=== PATIENT | female | born 1990 ===

== ENCOUNTER 2016-06-17 23:00 | Observation (INO) | payer BC, OTHER ==
--- NOTE | 2016-06-18 00:12 | ED PDOC ---
Arrival/HPI - General Chief Complaint: Dizziness/Lightheaded Time Seen by Provider: 06/18/16 00:06 Historian: Patient - History of Present Illness Narrative History of Present Illness (Text): 06/18/16 00:12 Liudmila Castellanos is a 26 year old female, whose past medical history includes asthma and anxiety, who presents to the Emergency department complaining of nausea. Patient states she has been experiencing intermittent nausea for the 6 days with 1 episode of vomiting 6 days prior and intermittent abdominal pain. Patient states today she felt light-headed with dizziness, described as room- spinning, headache, subjective fever, and chills. Patient also reports diarrhea for the past few months. Patient states she is currently on her menstrual period and notes she had Pepto Bismol at 18:00. Time/Duration: < week (6 days) Symptom Onset: Gradual Symptom Course: Intermittent Activities at Onset: Rest, Light Context: Home Past Medical History - Provider Review Nursing Documentation Reviewed: Yes - Cardiac Hx Cardiac Disorders: No Hx Hypertension: No - Pulmonary Hx Asthma: Yes - Neurological HX Cerebrovascular Accident: No Hx Seizures: No - Hematological/Oncological Hx Cancer: No - Genitourinary/Gynecological Hx Sexually Transmitted Diseases: No - Psychiatric Hx Anxiety: Yes Hx Panic Disorder: Yes Hx Substance Use: Yes (marijuana) - Anesthesia Hx Anesthesia: No - Suicidal Assessment Feels Threatened In Home Enviroment: No Family/Social History - Physician Review Nursing Documentation Reviewed: Yes Family/Social History: No Known Family HX Smoking Status: Unknown If Ever Smoked Hx Alcohol Use: No Hx Substance Use: Yes (marijuana) Allergies/Home Meds Allergies/Adverse Reactions: Allergies acetaminophen [From Percocet] Allergy (Verified 06/17/16 23:41) ITCHING oxycodone HCl [From Percocet] Allergy (Verified 06/17/16 23:41) ITCHING vancomycin Allergy (Verified 06/17/16 23:41) ITCHING Review of Systems - Physician Review All systems were reviewed & negative as marked: Yes - Review of Systems Constitutional: Fevers (+subjective fever), Other (+chills) Eyes: Normal ENT: Normal Respiratory: Normal. absent: SOB, Cough Cardiovascular: Normal. absent: Chest Pain Gastrointestinal: Abdominal Pain, Diarrhea, Nausea, Vomiting Genitourinary Female: Normal. absent: Dysuria, Frequency, Hematuria, Urine Output Changes Musculoskeletal: Normal. absent: Back Pain, Neck Pain Skin: Normal. absent: Rash Neurological: Headache, Dizziness, Other (+light-headedness) Endocrine: Normal Hemo/Lymphatic: Normal Psychiatric: Normal Physical Exam Vital Signs Reviewed: Yes Vital Signs Temp Pulse Resp BP Pulse Ox 06/18/16 03:32 98.1 F 61 17 114/74 100 06/17/16 23:42 98.3 F 59 L 16 112/75 100 Temperature: Afebrile Blood Pressure: Normal Pulse: Regular Respiratory Rate: Normal Appearance: Positive for: Well-Appearing, Non-Toxic, Comfortable Pain Distress: None Mental Status: Positive for: Alert and Oriented X 3 - Systems Exam Head: Present: Atraumatic, Normocephalic Pupils: Present: PERRL Extroacular Muscles: Present: EOMI Conjunctiva: Present: Normal Ears: Present: Normal, NORMAL TM, Normal Canal, Other (Gauges in bilateral ear lobes) Mouth: Present: Moist Mucous Membranes Neck: Present: Normal Range of Motion Respiratory/Chest: Present: Clear to Auscultation, Good Air Exchange. No: Respiratory Distress, Accessory Muscle Use Cardiovascular: Present: Regular Rate and Rhythm, Normal S1, S2. No: Murmurs Abdomen: Present: Normal Bowel Sounds. No: Tenderness, Distention, Peritoneal Signs Neurological: Present: GCS=15, CN II-XII Intact, Speech Normal Skin: Present: Warm, Dry, Normal Color. No: Rashes Psychiatric: Present: Alert, Oriented x 3, Normal Insight, Normal Concentration Medical Decision Making ED Course and Treatment: 06/18/16 00:12 Impression: 26 year old female complaining of nausea, dizziness, light-headedness, and abdominal pain. Plan: -- CT Abdomen and Pelvis with PO and IV contrast -- Labs, lipase, amylase -- Urinalysis -- IV fluids -- Zofran -- Pepcid -- Reassess and disposition Progress Notes: 06/18/16 03:39 CT Abdomen and Pelvis shows: Dictated and Authenticated by: Daniel Abad MD Lower thorax: Subtle nodular opacities at the lung bases compatible with nonspecific small airways disease with associated septal thickening ABDOMEN: Liver: Unremarkable. No mass. Gallbladder and bile ducts: Nonspecific periportal edema is present. The gallbladder demonstrates asymmetric wall thickening. Cholecystitis not excluded in the correct clinical setting. Pancreas: Unremarkable. No mass. No ductal dilation. Spleen: Unremarkable. No splenomegaly. Adrenals: Unremarkable. No mass. Kidneys and ureters: Unremarkable. No solid mass. No hydronephrosis. Stomach and bowel: Rectosigmoid wall thickening may reflect a nonspecific proctosigmoiditis in the correct clinical setting. Appendix: No findings to suggest acute appendicitis. PELVIS: Bladder: Unremarkable. No mass. Reproductive: Unremarkable as visualized. ABDOMEN and PELVIS: Intraperitoneal space: Trace free fluid is present which is nonspecific but may reflect physiologic fluid or rupture of an ovarian cyst or follicle. Bones/joints: No acute fracture. No dislocation. Soft tissues: Unremarkable. Vasculature: Unremarkable. No abdominal aortic aneurysm. Lymph nodes: Unremarkable. No enlarged lymph nodes. Other findings: Tampon is in place IMPRESSION: 1. Nonspecific periportal edema is present. The gallbladder demonstrates asymmetric wall thickening. Cholecystitis not excluded in the correct clinical setting. 2. Trace free pelvic fluid. 3. Rectosigmoid wall thickening may reflect a nonspecific proctosigmoiditis in the correct clinical setting. 06/18/16 05:30 Patient continues to feel pain and nausea and will need further evaluation and observation. Case discussed with Dr. Perdomo, covering for Dr. Fernandez, who is aware and agrees with plan. 06/18/16 05:33 Orders placed for earl garcía and CORY to be followed by inpatient/observation team. - Lab Interpretations Lab Results: 06/18/16 00:25 06/18/16 00:25 Lab Results 06/18/16 00:25: WBC 9.8 D, RBC 3.92, Hgb 11.3 L, Hct 33.7 L, MCV 86.0, MCH 28.8 , MCHC 33.5, RDW 13.3, Plt Count 272, MPV 10.2, Gran % 63.4, Lymph % (Auto) 26.1 , [place] % (Auto) 7.1 H, Eos % (Auto) 3.2, Baso % (Auto) 0.2, Gran # 6.19, Lymph # 2.5, [place] # 0.7 H, Eos # 0.3, Baso # 0.02, PT 10.5, INR 0.97, APTT 25.6, Sodium 138, Potassium 3.1 L, Chloride 105, Carbon Dioxide 24, Anion Gap 12, BUN 11, Creatinine 0.6, Est GFR ( Amer) > 60, Est GFR (Non-Af Amer) > 60, Random Glucose 92, Calcium 9.0, Total Bilirubin 0.5, AST 25, ALT 29, Alkaline Phosphatase 56, Total Protein 7.6, Albumin 4.2, Globulin 3.4, Albumin/Globulin Ratio 1.2, Amylase 105, Lipase 95, Urine Color Yellow, Urine Appearance Slight- cloudy, Urine pH 6.5, Ur Specific [place] 1.025, Urine Protein Trace H, Urine Glucose (UA) Negative, Urine Ketones Negative, Urine Blood Moderate H, Urine Nitrate Negative, Urine Bilirubin Negative, Urine Urobilinogen 0.2, Ur Leukocyte Esterase Negative, Urine RBC 1 - 3, Urine WBC 0 - 2, Ur Epithelial Cells 0 - 2, Urine Bacteria Rare, Urine Other Mucus I have reviewed the lab results: Yes - RAD Interpretation Radiology Orders: 06/18/16 00:14 ABD PELVIS PO & IV CONTRAST [CT] Stat 06/18/16 05:32 BILIARY SCAN (HIDA) [NM] Urgent ABDOMEN COMPLETE [US] Urgent [employer]: Radiologist - Medication Orders Current Medication Orders: Discontinued Medications Famotidine (Pepcid) 20 mg IVP STAT STA Stop: 06/18/16 00:18 Last Admin: 06/18/16 00:52 Dose: 20 MG IVP Administration Document 06/18/16 00:52 ASHLEY (Rec: 06/18/16 00:53 ASHLEY [id number]) Charges for Administration # of IVP Administrations 1 Sodium Chloride (Sodium Chloride 0.9%) 1,000 mls @ 999 mls/hr IV .Q1H1M STA Stop: 06/18/16 01:14 Last Admin: 06/18/16 00:52 Dose: 999 MLS/HR eMAR Start Stop Document 06/18/16 00:52 ASHLEY (Rec: 06/18/16 00:52 ASHLEY [id number]) Intravenous Solution Start Date 06/18/16 Start Time 00:52 End Date 06/18/16 End time 01:52 Total Infusion Time 60 Iohexol (Omnipaque 240 (50 Ml)) Confirm Administered Dose 50 ml .ROUTE .STK-MED ONE Stop: 06/18/16 01:11 Iohexol (Omnipaque 350 100 Ml) Confirm Administered Dose 350 mg .ROUTE .STK-MED ONE Stop: 06/18/16 02:49 Morphine Sulfate (Morphine) 2 mg IVP STAT STA Stop: 06/18/16 00:34 Last Admin: 06/18/16 00:53 Dose: 2 MG MAR Pain Assessment Document 06/18/16 00:53 ASHLEY (Rec: 06/18/16 00:53 ASHLEY [id number]) Pain Reassessment Is this a pain reassessment? No IVP Administration Document 06/18/16 00:53 ASHLEY (Rec: 06/18/16 00:53 ASHLEY [id number]) Charges for Administration # of IVP Administrations 1 Ondansetron HCl (Zofran Inj) 4 mg IVP STAT STA Stop: 06/18/16 00:18 Last Admin: 06/18/16 00:53 Dose: 4 MG IVP Administration Document 06/18/16 00:53 ASHLEY (Rec: 06/18/16 00:53 ASHLEY [id number]) Charges for Administration # of IVP Administrations 1 Potassium Chloride (Potassium Chloride Oral Soln) 40 meq PO STAT STA Stop: 06/18/16 01:44 Last Admin: 06/18/16 02:51 Dose: 40 MEQ - Scribe Statement The provider has reviewed the documentation as recorded by the Benjamin Lilly Provider Attestation: All medical record entries made by the Benjamin were at my direction and personally dictated by me. I have reviewed the chart and agree that the record accurately reflects my personal performance of the history, physical exam, medical decision making, and the department course for this patient. I have also personally directed, reviewed, and agree with the discharge instructions and disposition. Disposition/Present on Arrival - Present on Arrival Any Indicators Present on Arrival: No History of DVT/PE: No History of Uncontrolled Diabetes: No Urinary Catheter: No History of Decub. Ulcer: No History Surgical Site Infection Following: None - Disposition Have Diagnosis and Disposition been Completed?: Yes Diagnosis: Abdominal pain Disposition: HOSPITALIZED Disposition Time: 05:30 Patient Plan: Observation Condition: FAIR
[2016-06-18] MEDS ORDERED: Sodium Chloride 0.9% 1,000 ML IV STA (00:14)
[2016-06-18] MEDS ORDERED: Morphine 2 mg/ml ISec IVP STA (00:33)
[2016-06-18 00:52] LABS: ADD MANUAL DIFF? NO
[2016-06-18 01:01] LABS: BASO # 0.02 K/mm3 (0.0-2.0); BASO % 0.2 % (0.0-3.0); EOS # 0.3 (0.0-0.7); EOS % 3.2 % (1.5-5.0); GRAN # 6.19 (1.4-6.5); GRAN % 63.4 % (50.0-68.0); HEMATOCRIT 33.7 % (36.0-48.0); LYMPH # 2.5 (1.2-3.4); LYMPH % 26.1 % (22.0-35.0); MEAN CORPUSCULAR HEMOGLOBIN 28.8 pg (25.0-35.0); MEAN CORPUSCULAR HGB CONC 33.5 g/dl (31.0-37.0); MEAN PLATELET VOLUME 10.2 fl (7.0-11.0); MONO # 0.7 (0.1-0.6); MONO % 7.1 % (1.0-6.0); PLATELET COUNT 272 10^3/uL (120.0-450.0); RED CELL DISTRIBUTION WIDTH 13.3 % (11.5-14.5)
[2016-06-18 01:04] LABS: INR 0.97 (0.93-1.08); PARTIAL THROMBOPLASTIN TIME 25.6 Seconds (23.7-30.8)
[2016-06-18 01:05] LABS: PH,URINE 6.5 (4.7-8.0); URINE BILIRUBIN NEGATIVE (NEGATIVE); URINE BLOOD MODERATE (NEGATIVE); URINE GLUCOSE (UA) NEGATIVE (NEGATIVE); URINE KETONE NEGATIVE (NEGATIVE); URINE LEUKOCYTE ESTERASE NEGATIVE Leu/uL (NEGATIVE); URINE PROTEIN TRACE mg/dL (<30 mg/dL); URINE UROBILINOGEN 0.2 E.U./dL (<1 E.U./dL)
[2016-06-18 01:08] LABS: ALB/GLOB RATIO 1.2 (1.1-1.8); ALKALINE PHOSPHATASE 56 U/L (38-133); ALT/SGPT 29 U/L (7-56); AMYLASE 105 U/L (35-125); AST/SGOT 25 U/L (15-39); BILIRUBIN,TOTAL 0.5 mg/dL (0.2-1.3); BLOOD UREA NITROGEN 11 mg/dL (7-21); CARBON DIOXIDE 24 mmol/L (21-33); CHLORIDE 105 mmol/L (95-110); GFR AFRICAN-AMERICAN > 60; GLUCOSE,RANDOM 92 mg/dL (70-110); LIPASE 95 U/L (23-300); POTASSIUM 3.1 mmol/L (3.6-5.0); SODIUM 138 mmol/L (132-148); TOTAL PROTEIN 7.6 g/dL (5.8-8.3)
[2016-06-18 01:09] LABS: WHITE BLOOD COUNT 9.8 10^3/ul (4.5-11.0)
[2016-06-18] MEDS ORDERED: Iohexol 240 (50 ml) ONE (01:10)
[2016-06-18 01:12] LABS: URINE APPEARANCE SLIGHT-CLOUDY (CLEAR); URINE COLOR YELLOW (YELLOW)
[2016-06-18 01:17] LABS: URINE BACTERIA RARE (NEG); URINE EPITHELIAL CELLS 0 - 2 /hpf (0-5); URINE WBC 0 - 2 /hpf (0-6)
[2016-06-18] MEDS ORDERED: Potassium Chloride 40 mEq/30 ml LIQ UD PO STA (01:43)
[2016-06-18] MEDS ORDERED: Iohexol 350 MG/100 ML VIAL ONE (02:48)
[2016-06-18] MEDS ORDERED: Potassium Chloride 10 mEq 100 ML IVPB SCH (06:00)
--- NOTE | 2016-06-18 07:23 | CP.PCM.HP ---
History of Present Illness - History of Present Illness History of Present Illness: 26 F with PMHx of mild persistent asthma, depression and anxiety presenting [place] [facility] with complaints of abdominal pains and nausea x6 days, loose stools x months and 1 episode of nbnb emesis. Patient states she has been experiencing intermittent nausea for the 6 days with 1 episode of vomiting 6 days prior and intermittent localized epigastric pain without radiation, with an intensity of 8 /10 at its worst without any exacerbating or alleviating factors. Patient admitted to lightheadedness, dizziness (room-spinning), headache, subjective fever, and chills. Patient also reports diarrhea for the past few months with no hematochezia. Patient states she is currently on her menstrual period. Pt denied sob, chest pains, palpitations, dysuria, hematuria, vaginal discharge or any urinary symptoms. PMHx; aniexty, depression, asthma PSHx: Denies SHx: Denied tobacco, etoh, admitted to marijuana FamHx: Noncontributory Meds: qvar, albuterol, remeron, clonipine, prozac Allergies: acetaminophen, oxycodone, vancomycin PMD: Dr. Fernandez Psychiatrist: Shon Present on Admission - Present on Admission Any Indicators Present on Admission: No History of DVT/PE: No History of Uncontrolled Diabetes: No Urinary Catheter: No Decubitus Ulcer Present: No Review of Systems - Review of Systems Review of Systems: as per HPI otherwise negative Past Patient History - Past Social History Smoking Status: Unknown If Ever Smoked - CARDIAC Hx Cardiac Disorders: No Hx Hypertension: No - PULMONARY Hx Asthma: Yes - NEUROLOGICAL HX Cerebrovascular Accident: No Hx Seizures: No - HEMATOLOGICAL/ONCOLOGICAL Hx Cancer: No - GENITOURINARY/GYNECOLOGICAL Hx Sexually Transmitted Disorders: No - PSYCHIATRIC Hx Anxiety: Yes Hx Panic Symptoms: Yes Hx Substance Use: Yes (marijuana) - SURGICAL HISTORY Hx Surgeries: No - ANESTHESIA Hx Anesthesia: No Meds Allergies/Adverse Reactions: Allergies Allergy/AdvReac Type Severity Reaction Status Date / Time acetaminophen [From Percocet] Allergy ITCHING Verified 06/17/16 23:41 oxycodone HCl [From Percocet] Allergy ITCHING Verified 06/17/16 23:41 vancomycin Allergy ITCHING Verified 06/17/16 23:41 Physical Exam - Constitutional Appears: Non-toxic, No Acute Distress - Head Exam Head Exam: ATRAUMATIC, NORMAL INSPECTION, NORMOCEPHALIC - Eye Exam Eye Exam: EOMI, Normal appearance, PERRL Pupil Exam: NORMAL ACCOMODATION, PERRL - ENT Exam ENT Exam: Mucous Membranes Dry - Neck Exam Neck exam: Positive for: Normal Inspection - Respiratory Exam Respiratory Exam: Clear to Auscultation Bilateral, NORMAL BREATHING PATTERN - Cardiovascular Exam Cardiovascular Exam: REGULAR RHYTHM, +S1, +S2 - GI/Abdominal Exam GI & Abdominal Exam: Normal Bowel Sounds, Soft. absent: Distended, Guarding, Rebound, Rigid, Tenderness - Extremities Exam Extremities exam: Positive for: normal inspection. Negative for: pedal edema, tenderness - Back Exam Back exam: NORMAL INSPECTION - Neurological Exam Neurological exam: Alert, CN II-XII Intact, Normal Gait, Oriented x3, Reflexes Normal - Psychiatric Exam Psychiatric exam: Normal Affect, Normal Mood - Skin Skin Exam: Dry, Intact, Normal Color, Warm Results - Vital Signs Recent Vital Signs: Last Vital Signs Temp 98.1 F 06/18/16 03:32 Pulse 66 06/18/16 06:36 Resp 18 06/18/16 06:36 BP 118/76 06/18/16 06:36 Pulse Ox 99 06/18/16 06:36 - Labs Result Diagrams: 06/18/16 00:25 06/18/16 00:25 Assessment & Plan - Assessment and Plan (Free Text) Assessment: 26 F with PMHx of mild persistent asthma, depression and anxiety presenting [place] [facility] with complaints of abdominal pains and nausea x6 days, loose stools x months and 1 episode of nbnb emesis. 1. Abdominal pain - CT Abdomen w po/iv contrast: demonstrated GB thickening and rectosigmoid wall thickening - afebrile, no WBC, no signs of infx - Amylase/lipase wnl - f/u Abd US - f/u HIDA scan - GI consult, Dr. Harkins 2. Nausea - 1 episode nbnb emesis - NPO - Zofran prn - IVF: NS @125ml/hr 3. Diarrhea - >1mo - stool cx - cdiff - stool lytes - GI consulted, Dr. Harkins 4. Hypokalemia - monitor and supplement as needed 5. Anemia - Currently on menses - Hgb: 11.1 - anemia workup 6. Mild persistent asthma - under control with home meds, qvar and albuterol 7. Depression/ anxiety - continue home meds 8. GI/ DVT ppx Seen, reviewed and discussed with attending.
[2016-06-18 08:26] LABS: ADD MANUAL DIFF? NO
[2016-06-18 08:29] LABS: BASO # 0.03 K/mm3 (0.0-2.0); BASO % 0.4 % (0.0-3.0); EOS # 0.3 (0.0-0.7); EOS % 3.7 % (1.5-5.0); GRAN # 4.13 (1.4-6.5); GRAN % 60.5 % (50.0-68.0); HEMATOCRIT 32.1 % (36.0-48.0); LYMPH # 1.9 (1.2-3.4); LYMPH % 27.5 % (22.0-35.0); MEAN CELL VOLUME 87.2 fL (80.0-105.0); MEAN CORPUSCULAR HEMOGLOBIN 28.8 pg (25.0-35.0); MEAN PLATELET VOLUME 10.3 fl (7.0-11.0); MONO # 0.5 (0.1-0.6); MONO % 7.9 % (1.0-6.0); PLATELET COUNT 231 10^3/uL (120.0-450.0); RED CELL DISTRIBUTION WIDTH 13.6 % (11.5-14.5); WHITE BLOOD COUNT 6.8 10^3/ul (4.5-11.0)
[2016-06-18 08:41] LABS: ALB/GLOB RATIO 1.2 (1.1-1.8); ALKALINE PHOSPHATASE 52 U/L (38-133); ALT/SGPT 52 U/L (7-56); AST/SGOT 43 U/L (15-39); BILIRUBIN,TOTAL 0.7 mg/dL (0.2-1.3); BLOOD UREA NITROGEN 8 mg/dL (7-21); CALCIUM 7.9 mg/dL (8.4-10.5); CARBON DIOXIDE 21 mmol/L (21-33); CHLORIDE 110 mmol/L (98-107); GFR AFRICAN-AMERICAN > 60; GLUCOSE,RANDOM 88 mg/dL (70-110); MAGNESIUM 1.7 mg/dL (1.7-2.2); PHOSPHOROUS 2.9 mg/dL (2.5-4.5); POTASSIUM 3.5 mmol/L (3.6-5.0); SODIUM 140 mmol/L (132-148); TOTAL PROTEIN 6.6 g/dL (5.8-8.3)
[2016-06-18 08:45] LABS: IRON 86 ug/dL (45-180)
[2016-06-18] MEDS ORDERED: Potassium Chloride 20 mEq ER Tab PO STA (09:00)
--- NOTE | 2016-06-18 09:10 | CT ---
PROCEDURE: CT Abdomen and Pelvis with contrast HISTORY: Abdominal pain, nausea, diarrhea and vomiting. By history, negative test (concurrent with this examination). COMPARISON: None. TECHNIQUE: Contrast dose: 96 cc Omnipaque 350. Radiation dose: Total exam DLP = 292.08 mGy-cm. This CT exam was performed using one or more of the following dose reduction techniques: Automated exposure control, adjustment of the mA and/or kV according to patient size, and/or use of iterative reconstruction technique. FINDINGS: LOWER THORAX: Unremarkable. LIVER: Unremarkable. No gross lesion or ductal dilatation. GALLBLADDER AND BILE DUCTS: Inflammatory changes, contrast enhancement of the gallbladder wall with pericholecystic, right upper quadrant fluid. Fluid tracks along the bile ducts. No intrinsic or extrinsic findings. Acute cholecystitis should be considered. PANCREAS: Unremarkable. No gross lesion or ductal dilatation. SPLEEN: Bowel ADRENALS: Unremarkable. No mass. KIDNEYS AND URETERS: Unremarkable. No hydronephrosis. No solid mass. VASCULATURE: Unremarkable. No aortic aneurysm. BOWEL: Constipation without fecal impaction or obstruction. APPENDIX: No abnormalities to suggest acute appendicitis. No right lower quadrant inflammatory processes identified. PERITONEUM: Trace free fluid identified in the pelvis/cul de sac. LYMPH NODES: Unremarkable. No enlarged lymph nodes. BLADDER: Unremarkable. REPRODUCTIVE: Unremarkable. BONES: No acute fracture. OTHER FINDINGS: None. IMPRESSION: Inflammatory changes likely biliary in origin. Acute cholecystitis should be considered. Additional benign and/or incidental findings described above. Concordant results (preliminary interpretation) provided by [employer] system. Procedure Completed: 03:04. Preliminary ([facility]) Report: Dictated and Authenticated: 03:33. Final Interpretation: 09:08. June 18, 2016.
--- NOTE | 2016-06-18 10:53 | NM ---
PROCEDURE: Nuclear Medicine Hepatobiliary Scan HISTORY: thick GB, abd pain - r/o cholecystitis COMPARISON: None available. TECHNIQUE: 5.4 mCi of technetium 99m Mebrofenin was administered intravenously. Planar images of the abdomen were obtained at 5 min intervals to 60 mins. Delayed images were also obtained. FINDINGS: LIVER: Timely and homogenous uptake. COMMON BILE DUCT: identified at 5 mins. GALLBLADDER: identified at 15 mins. SMALL BOWEL: Identified at 60 mins. IMPRESSION: Normal Hepatobiliary Scan. The cystic duct is patent.
[2016-06-18] MEDS: Albuterol-Ipratrop 3 mg / 0.5 (3 ml) UD IH PRN (10:56)
--- NOTE | 2016-06-18 11:30 | US ---
HISTORY: abdominal pain - thick GB COMPARISON: June 18, 2016. CT abdomen and pelvis. Hepatobiliary scan. TECHNIQUE: Sonographic evaluation of the abdomen. FINDINGS: LIVER: Measures 13.7 cm. Patent portal vein. Portal venous flow: Hepatopetal. Unremarkeable echogenicity of the liver parenchyma. No mass. No intrahepatic bile duct dilatation. GALLBLADDER: Gallbladder wall thickening, trace pericholecystic fluid. Negative sonographic Rossi sign elicited by technologist. COMMON BILE DUCT: Measures 3.2 mm. No stones. No dilatation. PANCREAS: Unremarkable as visualized. No mass. No ductal dilatation. RIGHT KIDNEY: Measures 4.1 x 10.5cm. Normal echogenicity. No calculus, mass, or hydronephrosis. LEFT KIDNEY: Measures 5.4 x 10.3cm. Normal echogenicity. No calculus, mass, or hydronephrosis. SPLEEN: Normal in size and contour. No mass. AORTA: No aneurysmal dilatation. IVC: Unremarkable. OTHER FINDINGS: None. IMPRESSION: Gallbladder wall thickening, trace pericholecystic right upper quadrant fluid. No evidence of cholelithiasis.
[2016-06-18 14:06] VITALS: BMI 22.6
[2016-06-18] MEDS ORDERED: Pneumococcal 23-Valent Vaccine IM ONE (14:06)
--- NOTE | 2016-06-18 14:23 | CON ---
DATE: 06/18/2016 Seen and examined in radiology. REQUEST FOR CONSULT: Nausea, vomiting, abdominal pain. HISTORY OF PRESENT ILLNESS: This is a 26-year-old female with history of asthma who came to the Emergency Room with complaints of upper abdominal pain and nausea for about 4-5 days. She describes the pain as sharp. She also complained of fever or chills. Complaining of diarrhea for the past 4 months. Denies any melena or bright red blood per rectum. She states that she has history of antibiotic use for bronchitis, and diarrhea occurred after this. She was also on prednisone for the bronchitis. She denies any contributing foods or any recent travel. But she is also during that time complaining of midabdominal pain. The patient has never had any upper endoscopy before. Denies any hemetemesis. No complaints of any weight loss, shortness of breath, chest pain or any dysuria. Currently started her menstrual period. PAST MEDICAL HISTORY: Asthma, depression, anxiety, recent bronchitis. PAST SURGICAL HISTORY: Denies. FAMILY HISTORY: Noncontributory. SOCIAL HISTORY: Denies smoking, ETOH. Occasional marijuana use. ALLERGIES: VANCOMYCIN, OXYCODONE AND ACETAMINOPHEN. REVIEW OF SYSTEMS: Systems reviewed with positive findings, see HPI. VITAL SIGNS: Temperature is 98.1, blood pressure is 118/76, pulse 66, respirations 18, and 99% on room air. LABORATORY DATA: WBC 6.8, H and H are 10.6 and 32.1, platelets are 231. PT is 10.5, INR is 0.97, PTT is 25.6. Sodium is 140, K is 3.5, BUN is 8, creatinine 0.6. Mag level at 1.7, iron 86, TIBC is 376, percent saturation 23, ferritin is 7.9. Her total bilirubin is 0.7, AST 43, ALT 52, alkaline phosphatase is 52. Her amylase is 105 on admission; lipase is 95. Urinalysis: Negative for leukocyte esterase, moderate blood and trace of protein. The patient currently has her menstrual period as well. She had a CT scan of abdomen and pelvis with IV and oral contrast, which is reporting some inflammatory changes, likely biliary in origin; acute cholecystitis should be considered. Pancreas is unremarkable. Her bowel: Constipation without fecal impaction or obstruction. The liver is unremarkable. No abnormality to suggest acute appendicitis. No right lower quadrant inflammatory process identified. She has trace free fluid identified in the pelvis/cul-de-sac. No enlarged lymph nodes. She then had an abdominal ultrasound and this showed gallbladder wall thickening with trace pericholecystic fluid. Negative sonographic Rossi sign. The common bile duct measured 3.2 cm; no stones or dilatation. No evidence of cholelithiasis. The patient also went for HIDA scan and that showed a normal hepatobiliary scan. The cystic duct is patent. PHYSICAL EXAMINATION: HEENT: Sclerae are anicteric. NECK: Supple. CARDIAC: S1, S2. LUNGS: With clear breath sounds. No rales or wheeze. ABDOMEN: With bowel sounds. Soft, not distended. She does have some tenderness to mid periumbilical area. No rebound or guarding. EXTREMITIES: No edema or calf tenderness. NEUROLOGIC: Awake, alert, and oriented. ASSESSMENT: This is a 26-year-old female with past medical history of asthma, bronchitis and depression who comes to the Emergency Room with complaint of abdominal pain and nausea for about 4-5 days as well as complaints of diarrhea for about 4 months. She also was having abdominal discomfort at that time and mid lower abdominal pain. The patient is status post CT scan/ultrasound, rule out any acute cholecystitis. The HIDA scan was negative. Abdominal US reveal GB wall thickening and pericholecystic fluid. Also noted to have some rectosigmoid wall thickening, rule out any Clostridium difficile colitis as patient has history of previous antibiotic use and steroid use. Abdominal pain , anemia, history of asthma. PLAN: Awaiting for stool studies. We will request stool for C. diff and culture. She has also been requested for fecal leukocytes, ova and parasites, and stool electrolytes. Continue GI prophylaxis. She is on Protonix IV daily. Monitor electrolytes. On DVT prophylaxis. Hypokalemia. She is getting potassium replacement. Continue IV fluids for hydration. Start clear liquid, Flagyl 250 mg QID, plan for Flexsigmoidoscopy tomorrow, and recommend surgical evaluation. Thank you for this consult and for allowing us to participate in your patient's care. Will make further recommendation based upon the patient's clinical course. The patient was seen and case discussed with Dr. Harkins who was covering rounds. Indy TRIPLETT cc: [id number] TT: 06/18/2016 14:22:43 Confirmation # [id number] Dictation # [id number] mn MTDD
[2016-06-18] MEDS: Sodium Chloride 0.9% 1,000 ML IV SCH (14:40)
[2016-06-18] MEDS ORDERED: FLUoxetine Elix 20 MG/5 ML PO SCH (15:00)
[2016-06-19 06:36] LABS: ADD MANUAL DIFF? NO
[2016-06-19 06:40] LABS: BASO # 0.02 K/mm3 (0.0-2.0); BASO % 0.2 % (0.0-3.0); EOS # 0.1 (0.0-0.7); EOS % 0.9 % (1.5-5.0); GRAN # 7.89 (1.4-6.5); HEMATOCRIT 31.3 % (36.0-48.0); LYMPH # 1.3 (1.2-3.4); LYMPH % 13.2 % (22.0-35.0); MEAN CELL VOLUME 87.4 fL (80.0-105.0); MEAN CORPUSCULAR HEMOGLOBIN 28.8 pg (25.0-35.0); MEAN CORPUSCULAR HGB CONC 32.9 g/dl (31.0-37.0); MEAN PLATELET VOLUME 10.2 fl (7.0-11.0); MONO # 0.5 (0.1-0.6); MONO % 4.7 % (1.0-6.0); PLATELET COUNT 252 10^3/uL (120.0-450.0); RED CELL DISTRIBUTION WIDTH 13.3 % (11.5-14.5); WHITE BLOOD COUNT 9.8 10^3/ul (4.5-11.0)
[2016-06-19 06:50] LABS: ALB/GLOB RATIO 1.1 (1.1-1.8); ALKALINE PHOSPHATASE 49 U/L (38-133); ALT/SGPT 47 U/L (7-56); AST/SGOT 26 U/L (15-39); BILIRUBIN,TOTAL 0.6 mg/dL (0.2-1.3); BLOOD UREA NITROGEN 5 mg/dL (7-21); CARBON DIOXIDE 23 mmol/L (21-33); CHLORIDE 109 mmol/L (98-107); GFR AFRICAN-AMERICAN > 60; GLUCOSE,RANDOM 108 mg/dL (70-110); POTASSIUM 3.3 mmol/L (3.6-5.0); SODIUM 139 mmol/L (132-148); TOTAL PROTEIN 6.1 g/dL (5.8-8.3)
[2016-06-19] MEDS: Albuterol-Ipratrop 3 mg / 0.5 (3 ml) UD IH PRN ×3 (07:58→16:02)
--- NOTE | 2016-06-19 08:05 | CON ---
DATE: 06/18/2016 ____ the GI progress consultation report dictated by Indy Gaviria APN This patient was seen and evaluated earlier. The patient does have 2 different types of symptoms. One is the diffuse abdominal discomfort which persisted for nearly 3-4 months. Had episodes of loose annabel wel movements. The other problem she has is discomfort in the upper abdominal area, which progressiv baylee got worse, 4-5 days. Physical exam did have mild tenderness in the upper epigastric and right up per quadrant area. There is no rebound or guarding. The HIDA scan was reviewed and is negative; how ever, the CT scan clearly shows some gallbladder wall thickening with some pericholecystic edema. No stones were identified in either CT or the sonogram. Common bile duct has been normal. The concern is ____ whether the patient has cholecystitis, acalculous cholecystitis, there is a concern. The o ther possibility, CT also shows significant thickening of the rectal area with the background of the patient having intermittent episodes of loose bowel movements. We need to consider C difficile as a differential diagnosis, especially when the patient gives a history of taking intermittent course of steroids for asthma and also the patient has been treated with antibiotics for bronchitis 3-4 months ago and she mentions that symptoms of diarrhea and diffuse discomfort started after that. Would jose antonio mmend at this point 1. Empiric treatment with Flagyl. 2. Will get a surgical evaluation regarding the gallbladder. ____ will be put on a clear liquid diet. I will consider flexible sigmoidoscopy in a.m. if the patie nt has any significant tenderness, worsening of the symptoms, we will consider starting the patient o n intravenous antibiotics. Thank you very much for allowing us to participate in the care of the patient. Meka Harkins MD cc: [id number] TT: 06/19/2016 01:25:36 Confirmation # [id number] Dictation # [id number] morales
[2016-06-19] MEDS: Potassium Chloride 20 mEq ER Tab PO SCH ×2 (08:24→10:56)
--- NOTE | 2016-06-19 10:45 | CP.PCM.PN ---
<Jose Martin Johnson - Last Filed: 06/19/16 10:40> Subjective - Date & Time of Evaluation Date of Evaluation: 06/19/16 Time of Evaluation: 10:41 - Subjective Subjective: Medicine progress note - Jose Martin Alex PGY1 Patient seen and examined at bedside. Extensively discussed current workup and plan with the patient with the GI team present. She reports continued epigastric abdominal pain, mild nausea, however no vomiting. Patient is aware of plan to do endoscopy and sigmoidoscopy today. As per GI team recommendations , will obtain surgery consultation as well. Denies chest pain, palpitations, SOB. Objective - Vital Signs/Intake and Output Vital Signs (last 24 hours): Temp Pulse Resp BP Pulse Ox 97.8 F 98 H 20 115/57 L 97 06/19/16 08:00 06/19/16 08:00 06/19/16 08:00 06/19/16 08:00 06/19/16 08:00 Intake and Output: 06/19/16 06/19/16 06:59 18:59 Intake Total 3780 Balance 3780 - Medications Medications: Current Medications Albuterol/Ipratropium (Duoneb 3 Mg/0.5 Mg (3 Ml) Ud) 3 ml IH Q2H PRN PRN Reason: Shortness of Breath Last Admin: 06/19/16 07:58 Dose: 3 ml Clonazepam (Klonopin) 0.25 mg PO 10,22 [facility] PRN Reason: Protocol Last Admin: 06/19/16 09:17 Dose: 0.25 mg Fluoxetine HCl (Prozac) 20 mg PO DAILY [facility] Last Admin: 06/19/16 09:19 Dose: 20 mg Heparin Sodium (Porcine) (Heparin) 5,000 units SC Q12 [facility] PRN Reason: Protocol Last Admin: 06/19/16 09:20 Dose: 5,000 units Sodium Chloride (Sodium Chloride 0.9%) 1,000 mls @ 125 mls/hr IV .Q8H [facility] Last Admin: 06/18/16 14:40 Dose: Not Given Metronidazole (Flagyl) 250 mg PO QID [facility] PRN Reason: Protocol Last Admin: 06/19/16 09:19 Dose: 250 mg Mirtazapine (Remeron) 15 mg PO HS [facility] Last Admin: 06/18/16 22:12 Dose: 15 mg Ondansetron HCl (Zofran Inj) 4 mg IVP Q4H PRN PRN Reason: Nausea/Vomiting Last Admin: 06/18/16 10:49 Dose: 4 mg Pantoprazole Sodium (Protonix Inj) 40 mg IVP DAILY [facility] Last Admin: 06/19/16 09:20 Dose: 40 mg Potassium Chloride (K-Dur 20 Meq Er Tab) 40 meq PO Q4H [facility] Stop: 06/19/16 11:01 Last Admin: 06/19/16 08:24 Dose: 40 meq Tramadol HCl (Ultram) 50 mg PO Q6 PRN PRN Reason: Pain, moderate (4-7) Last Admin: 06/19/16 08:24 Dose: 50 mg - Labs Labs: 06/19/16 06:20 06/19/16 06:20 PT 10.5 Seconds (9.9-11.8) 06/18/16 00:25 INR 0.97 (0.93-1.08) 06/18/16 00:25 APTT 25.6 Seconds (23.7-30.8) 06/18/16 00:25 - Constitutional Appears: Well, Non-toxic, No Acute Distress - Head Exam Head Exam: ATRAUMATIC, NORMAL INSPECTION, NORMOCEPHALIC - Eye Exam Eye Exam: EOMI, PERRL. absent: Conjunctival injection, Scleral icterus - ENT Exam ENT Exam: Mucous Membranes Moist - Neck Exam Neck Exam: Normal Inspection - Respiratory Exam Respiratory Exam: Clear to Ausculation Bilateral. absent: Rales, Rhonchi, Wheezes - Cardiovascular Exam Cardiovascular Exam: RRR, +S1, +S2. absent: Diastolic murmur, Gallop, JVD, Rubs , Murmur - GI/Abdominal Exam GI & Abdominal Exam: Soft, Tenderness (epigastric), Normal Bowel Sounds. absent : Distended, Firm, Guarding, Rigid, Rebound - Neurological Exam Neurological Exam: Alert, Awake, CN II-XII Intact, Oriented x3 - Psychiatric Exam Psychiatric exam: Normal Affect, Normal Mood - Skin Skin Exam: Dry, Intact, Normal Color, Warm Assessment and Plan - Assessment and Plan (Free Text) Assessment: 26yo female with history of mild persistent asthma, depression and anxiety presenting c/o epigastric abdominal pain associated with nausea x6 days, loose stools x 4 months and 1 episode of nbnb emesis. Plan: 1. Abdominal pain associated with nausea/vomiting/diarrhea -CT Abd/pelvis reviewed; revealed GB wall thickening and proctosigmoiditis -afebrile, no leukocytosis -Abdominal US revealed GB wall thickening and trace pericholecystic fluid -HIDA scan negative for cholecystitis -Continue flagyl as per GI recommendations -Continue IVF hydration -Stool leukocytes negative; Amylase/lipase within normal limits -Pending: Cdiff toxin/antigen; stool culture; ova/parasites -Patient for endoscopy/sigmoidoscopy today -GI consulted - Dr. Harkins -Surgery consulted - Dr. Vale 2. Hypokalemia -Monitoring and repleting as indicated 3. Anemia -Likely iron deficiency in etiology given low-normal ferritin and iron levels -Currently on menses -Will continue to monitor 4. Mild persistent asthma -Duoneb q2h PRN 5. Depression/ anxiety -continue home meds 6. GI/DVT prophylaxis -Protonix/heparin SC Patient seen and case discussed with attending, Dr. Praks <Dionte Parks - Last Filed: 07/15/16 10:54> Objective - Vital Signs/Intake and Output Vital Signs (last 24 hours): Temp Pulse Resp BP Pulse Ox 98.5 F 75 20 136/86 98 06/20/16 07:30 06/20/16 07:30 06/20/16 07:30 06/20/16 07:30 06/20/16 07:30 - Labs Labs: 06/20/16 07:30 06/20/16 07:30 PT 10.5 Seconds (9.9-11.8) 06/18/16 00:25 INR 0.97 (0.93-1.08) 06/18/16 00:25 APTT 25.6 Seconds (23.7-30.8) 06/18/16 00:25 Attending/Attestation - Attestation I have personally seen and examined this patient.: Yes I have fully participated in the care of the patient.: Yes I have reviewed all pertinent clinical information, including history, physical exam and plan: Yes Notes (Text): 07/15/16 10:54 Medial record note done by resident after patient personally seen and examined by me. I have reviewed the chart and agree that the record accurately reflects my personal evaluation, data review, and course for the patient.
[2016-06-19] MEDS: Sodium Chloride 0.9% 1,000 ML IV SCH (10:58)
--- NOTE | 2016-06-19 12:28 | CP.PCM.CON ---
History of Present Illness - History of Present Illness History of Present Illness: This is a 26 y/o female with hx asthma, depression/anxiety presenting with multiple GI complaints. Patient reports chronic persistent diarrhea for the past 3 to 4 months with associated intermittent generalized abdominal discomfort. Diarrhea is described as episodes of watery and non-bloody intermixed with loose stools. Patient is now reporting epigastric abdominal discomfort which has progressively worsened over the past 5 to 6 days. Pain is associated with nausea and 1 episode of non-bloody, nonbilious emesis. Patient denies fever, chills, radiation of pain. PMH: anxiety, depression, asthma PSH: none previous Soc hx: denies tobacco, etoh use. admits to marijuana use. Review of Systems - Constitutional Constitutional: absent: Chills, Fever, Headache - EENT Eyes: absent: Blurred Vision, Change in Vision Nose/Mouth/Throat: absent: Nasal Congestion, Nasal Discharge - Cardiovascular Cardiovascular: absent: Chest Pain, Irregular Heart Rhythm - Respiratory Respiratory: absent: Cough, Dyspnea - Gastrointestinal Gastrointestinal: Abdominal Pain, Diarrhea, Nausea, Vomiting. absent: Bloating , Hematemesis, Hematochezia, Melena - Genitourinary Genitourinary: absent: Dysuria, Flank Pain, Hematuria - Musculoskeletal Musculoskeletal: absent: Back Pain, Neck Pain - Integumentary Integumentary: absent: Pruritus, Rash - Neurological Neurological: absent: Dizziness, Numbness, Focal Weakness - Psychiatric Psychiatric: absent: Anxiety, Depression - Endocrine Endocrine: absent: Fatigue, Palpitations Past Patient History - Past Social History Smoking Status: Never Smoked - CARDIAC Hx Cardiac Disorders: No Hx Hypertension: No - PULMONARY Hx Asthma: Yes - NEUROLOGICAL HX Cerebrovascular Accident: No Hx Seizures: No - HEENT Hx HEENT Problems: Yes (eyeglasses) - HEMATOLOGICAL/ONCOLOGICAL Hx Cancer: No - MUSCULOSKELETAL/RHEUMATOLOGICAL Hx Falls: No - GENITOURINARY/GYNECOLOGICAL Hx Sexually Transmitted Disorders: No - PSYCHIATRIC Hx Substance Use: (pt denies) - SURGICAL HISTORY Hx Surgeries: No - ANESTHESIA Hx Anesthesia: No Meds Allergies/Adverse Reactions: Allergies Allergy/AdvReac Type Severity Reaction Status Date / Time acetaminophen [From Percocet] Allergy ITCHING Verified 06/17/16 23:41 oxycodone HCl [From Percocet] Allergy ITCHING Verified 06/17/16 23:41 vancomycin Allergy ITCHING Verified 06/17/16 23:41 - Medications Medications: Current Medications Albuterol/Ipratropium (Duoneb 3 Mg/0.5 Mg (3 Ml) Ud) 3 ml IH Q2H PRN PRN Reason: Shortness of Breath Last Admin: 06/19/16 11:19 Dose: 3 ml Clonazepam (Klonopin) 0.25 mg PO 10,22 CHRISTINA PRN Reason: Protocol Last Admin: 06/19/16 09:17 Dose: 0.25 mg Fluoxetine HCl (Prozac) 20 mg PO DAILY [facility] Last Admin: 06/19/16 09:19 Dose: 20 mg Heparin Sodium (Porcine) (Heparin) 5,000 units SC Q12 [facility] PRN Reason: Protocol Last Admin: 06/19/16 09:20 Dose: 5,000 units Sodium Chloride (Sodium Chloride 0.9%) 1,000 mls @ 125 mls/hr IV .Q8H [facility] Last Admin: 06/19/16 10:58 Dose: 125 mls/hr Metronidazole (Flagyl) 250 mg PO QID [facility] PRN Reason: Protocol Last Admin: 06/19/16 09:19 Dose: 250 mg Mirtazapine (Remeron) 15 mg PO HS [facility] Last Admin: 06/18/16 22:12 Dose: 15 mg Ondansetron HCl (Zofran Inj) 4 mg IVP Q4H PRN PRN Reason: Nausea/Vomiting Last Admin: 06/18/16 10:49 Dose: 4 mg Pantoprazole Sodium (Protonix Inj) 40 mg IVP DAILY [facility] Last Admin: 06/19/16 09:20 Dose: 40 mg Tramadol HCl (Ultram) 50 mg PO Q6 PRN PRN Reason: Pain, moderate (4-7) Last Admin: 06/19/16 08:24 Dose: 50 mg Physical Exam - Constitutional Appears: Non-toxic, No Acute Distress - Head Exam Head Exam: ATRAUMATIC, NORMOCEPHALIC - Eye Exam Eye Exam: EOMI, PERRL - ENT Exam ENT Exam: Mucous Membranes Moist - Neck Exam Neck exam: Positive for: Normal Inspection. Negative for: Lymphadenopathy - Respiratory Exam Respiratory Exam: Clear to Auscultation Bilateral. absent: Rales, Rhonchi, Wheezes - Cardiovascular Exam Cardiovascular Exam: REGULAR RHYTHM, +S1, +S2 - GI/Abdominal Exam GI & Abdominal Exam: Normal Bowel Sounds, Soft, Tenderness (epigastric ). absent: Distended, Firm, Guarding, Hernia - Extremities Exam Extremities exam: Negative for: calf tenderness, pedal edema - Back Exam Back exam: NORMAL INSPECTION - Neurological Exam Neurological exam: Alert, Oriented x3 - Psychiatric Exam Psychiatric exam: Normal Affect, Normal Mood - Skin Skin Exam: Dry, Normal Color, Warm Results - Vital Signs Recent Vital Signs: Last Vital Signs Temp 97.8 F 06/19/16 08:00 Pulse 98 H 06/19/16 08:00 Resp 20 06/19/16 08:00 BP 115/57 L 06/19/16 08:00 Pulse Ox 97 06/19/16 08:00 - Labs Result Diagrams: 06/19/16 06:20 06/19/16 06:20 Labs: Laboratory Results - last 24 hr 06/18/16 06/18/16 06/19/16 08:00 16:55 06:20 WBC 9.8 D RBC 3.58 Hgb 10.3 L Hct 31.3 L MCV 87.4 MCH 28.8 MCHC 32.9 RDW 13.3 Plt Count 252 MPV 10.2 Gran % 81.0 H Lymph % (Auto) 13.2 L [place] % (Auto) 4.7 Eos % (Auto) 0.9 L Baso % (Auto) 0.2 Gran # 7.89 H Lymph # 1.3 [place] # 0.5 Eos # 0.1 Baso # 0.02 Sodium 139 Potassium 3.3 L Chloride 109 H Carbon Dioxide 23 Anion Gap 10 BUN 5 L Creatinine 0.6 Est GFR ( Amer) > 60 Est GFR (Non-Af Amer) > 60 Random Glucose 108 Calcium 8.0 L Ferritin 7.9 Total Bilirubin 0.6 AST 26 ALT 47 Alkaline Phosphatase 49 Total Protein 6.1 Albumin 3.3 Globulin 2.9 Albumin/Globulin Ratio 1.1 Stool Leukocytes, Qual Negative Assessment & Plan - Assessment and Plan (Free Text) Assessment: 26 y/o female with PMH of asthma, anxiety/depression presenting with acute on chronic abdominal pain with associated chronic diarrhea. CT abd/pelvis reveals gallbladder wall thickening with surrounding pericholecystic fluid. Abdominal US does not reveal stones or CBD dilation. HIDA was performed and is normal. Given these findings the patient may be suffering from acalculous cholecystitis. Patient remains afebrile and without leukocytosis. - NPO - continue flagyl 250 PO QID - Zofran PRN nausea - Tramadol for pain - GI is following as well - will d/w Dr. Vale
[2016-06-19] MEDS ORDERED: Albuterol HFA 90 mcg/actuation (8 g) ONE ×2 (13:05→13:07)
[2016-06-19] MEDS ORDERED: Propofol 10 mg/ml Inj (20 ML) ONE (13:13)
[2016-06-19] MEDS ORDERED: Lidocaine 2% Inj (20ml) ONE (13:13)
[2016-06-19] MEDS ORDERED: Lactated Ringer's 1,000 ML IV SCH (14:00)
[2016-06-19 17:12] VITALS: RESP 20
[2016-06-20] MEDS: Sodium Chloride 0.9% 1,000 ML IV SCH ×2 (02:55→08:27)
--- NOTE | 2016-06-20 03:33 | CP.PCM.PN ---
Subjective - Date & Time of Evaluation Date of Evaluation: 06/20/16 Time of Evaluation: 06:30 - Subjective Subjective: General Surgery progress note this AM Pt s/e at bedside this AM. NAEO. Patient states her epigastric pain is not changed, and is also complaining of central chest pressure-like discomfort just above the epigastrium and "lung tightness." Breathing treatments have not been helping. Also reports nausea when trying to eat the full liquid diet, so she stopped eating. Had diarrhea yesterday, last BM yesterday evening. Denies pain radiating to her jaw or neck, vomiting, or any other symptoms. Objective - Vital Signs/Intake and Output Vital Signs (last 24 hours): Temp Pulse Resp BP Pulse Ox 97.9 F 79 20 109/73 100 06/19/16 16:00 06/19/16 16:00 06/19/16 16:00 06/19/16 16:00 06/19/16 16:00 Intake and Output: 06/19/16 06/20/16 18:59 06:59 Intake Total 240 480 Balance 240 480 - Medications Medications: Current Medications Albuterol/Ipratropium (Duoneb 3 Mg/0.5 Mg (3 Ml) Ud) 3 ml IH Q2H PRN PRN Reason: Shortness of Breath Last Admin: 06/19/16 16:02 Dose: 3 ml Clonazepam (Klonopin) 0.25 mg PO 10,22 [facility]STINA PRN Reason: Protocol Last Admin: 06/19/16 21:56 Dose: 0.25 mg Fluoxetine HCl (Prozac) 20 mg PO DAILY [facility] Last Admin: 06/19/16 09:19 Dose: 20 mg Heparin Sodium (Porcine) (Heparin) 5,000 units SC Q12 [facility] PRN Reason: Protocol Last Admin: 06/19/16 21:56 Dose: 5,000 units Sodium Chloride (Sodium Chloride 0.9%) 1,000 mls @ 125 mls/hr IV .Q8H [facility] Last Admin: 06/20/16 02:55 Dose: 125 mls/hr Metronidazole (Flagyl) 250 mg PO QID [facility] PRN Reason: Protocol Last Admin: 06/19/16 21:56 Dose: 250 mg Mirtazapine (Remeron) 15 mg PO HS [facility] Last Admin: 06/19/16 21:56 Dose: 15 mg Ondansetron HCl (Zofran Inj) 4 mg IVP Q4H PRN PRN Reason: Nausea/Vomiting Last Admin: 06/19/16 22:01 Dose: 4 mg Pantoprazole Sodium (Protonix Inj) 40 mg IVP DAILY [facility] Last Admin: 06/19/16 09:20 Dose: 40 mg Tramadol HCl (Ultram) 50 mg PO Q6 PRN PRN Reason: Pain, moderate (4-7) Last Admin: 06/19/16 23:45 Dose: 50 mg - Labs Labs: 06/19/16 06:20 06/19/16 06:20 PT 10.5 Seconds (9.9-11.8) 06/18/16 00:25 INR 0.97 (0.93-1.08) 06/18/16 00:25 APTT 25.6 Seconds (23.7-30.8) 06/18/16 00:25 - Constitutional Appears: Non-toxic, No Acute Distress - Head Exam Head Exam: ATRAUMATIC, NORMOCEPHALIC - Eye Exam Eye Exam: Normal appearance. absent: Conjunctival injection, Scleral icterus - ENT Exam ENT Exam: Mucous Membranes Moist, Normal Oropharynx - Respiratory Exam Respiratory Exam: NORMAL BREATHING PATTERN. absent: Accessory Muscle Use, Respiratory Distress - Cardiovascular Exam Cardiovascular Exam: RRR - GI/Abdominal Exam GI & Abdominal Exam: Soft, Tenderness (mild diffuse tenderness, moderate tenderness in the RUQ and epigastrium). absent: Distended, Rebound - Extremities Exam Extremities Exam: absent: Calf Tenderness, Pedal Edema, Tenderness - Neurological Exam Neurological Exam: Alert, Awake, Oriented x3 - Psychiatric Exam Psychiatric exam: Normal Affect, Normal Mood - Skin Skin Exam: Dry, Intact, Normal Color, Warm Assessment and Plan - Assessment and Plan (Free Text) Assessment: 26 y/o female with PMH of asthma, anxiety/depression presenting with acute on chronic abdominal pain with associated chronic diarrhea. CT abd/pelvis: gallbladder wall thickening with surrounding pericholecystic fluid. Abdominal US: no stones/CBD dilation. HIDA negative GI performed EGD and sigmoidoscopy yesterday--no reports at this time Plan: - FLD, follow GI recommendations for advancing - continue flagyl 250 PO QID - Zofran PRN nausea - Tramadol for pain - f/u GI recs and endoscopy reports - Discussed CP/SOB with primary team. Consider EKG/chest x-ray for SOB and CP as per primary team's discretion. - No indication for emergent surgery, will continue to follow - will d/w Dr. Kavin German, PGY1
[2016-06-20] MEDS: Albuterol-Ipratrop 3 mg / 0.5 (3 ml) UD IH PRN ×2 (07:33→12:45)
[2016-06-20 08:04] LABS: ADD MANUAL DIFF? NO
[2016-06-20 08:07] VITALS: BP 136/86; PULSE 75; TEMP 98.5; O2SAT 98
[2016-06-20 08:11] LABS: BASO # 0.01 K/mm3 (0.0-2.0); BASO % 0.2 % (0.0-3.0); EOS # 0.2 (0.0-0.7); GRAN # 3.83 (1.4-6.5); GRAN % 63.6 % (50.0-68.0); HEMATOCRIT 30.7 % (36.0-48.0); LYMPH # 1.5 (1.2-3.4); LYMPH % 25.4 % (22.0-35.0); MEAN CELL VOLUME 87.2 fL (80.0-105.0); MEAN CORPUSCULAR HEMOGLOBIN 28.7 pg (25.0-35.0); MEAN CORPUSCULAR HGB CONC 32.9 g/dl (31.0-37.0); MEAN PLATELET VOLUME 10.3 fl (7.0-11.0); MONO # 0.4 (0.1-0.6); MONO % 6.8 % (1.0-6.0); PLATELET COUNT 262 10^3/uL (120.0-450.0); RED CELL DISTRIBUTION WIDTH 13.5 % (11.5-14.5)
[2016-06-20 08:27] LABS: ALB/GLOB RATIO 1.2 (1.1-1.8); ALKALINE PHOSPHATASE 56 U/L (38-133); ALT/SGPT 40 U/L (7-56); AST/SGOT 28 U/L (15-39); BILIRUBIN,TOTAL 0.6 mg/dL (0.2-1.3); BLOOD UREA NITROGEN 3 mg/dL (7-21); CALCIUM 8.5 mg/dL (8.4-10.5); CARBON DIOXIDE 23 mmol/L (21-33); CHLORIDE 104 mmol/L (95-110); GFR AFRICAN-AMERICAN > 60; GLUCOSE,RANDOM 67 mg/dL (70-110); POTASSIUM 3.9 mmol/L (3.6-5.0); SODIUM 137 mmol/L (132-148); TOTAL PROTEIN 6.6 g/dL (5.8-8.3)
--- NOTE | 2016-06-20 09:52 | CP.PCM.PN ---
Subjective - Date & Time of Evaluation Date of Evaluation: 06/20/16 Time of Evaluation: 09:48 - Subjective Subjective: Medicine progress note - Jose Martin Johnson PGY1 Patient seen and examined at bedside this morning. No acute events overnight or new complaints. Continues to complain of epigastric abdominal tenderness. Denies chest pain, palpitations, SOB. Reports duoneb helps alleviate her asthma symptoms. Objective - Vital Signs/Intake and Output Vital Signs (last 24 hours): Temp Pulse Resp BP Pulse Ox 98.5 F 75 20 136/86 98 06/20/16 07:30 06/20/16 07:30 06/20/16 07:30 06/20/16 07:30 06/20/16 07:30 Intake and Output: 06/20/16 06/20/16 06:59 18:59 Intake Total 3720 Balance 3720 - Medications Medications: Current Medications Albuterol/Ipratropium (Duoneb 3 Mg/0.5 Mg (3 Ml) Ud) 3 ml IH Q2H PRN PRN Reason: Shortness of Breath Last Admin: 06/20/16 07:33 Dose: 3 ml Clonazepam (Klonopin) 0.25 mg PO Q12 [facility] PRN Reason: Protocol Fluoxetine HCl (Prozac) 20 mg PO DAILY [facility] Last Admin: 06/19/16 09:19 Dose: 20 mg Heparin Sodium (Porcine) (Heparin) 5,000 units SC Q12 [facility] PRN Reason: Protocol Last Admin: 06/19/16 21:56 Dose: 5,000 units Sodium Chloride (Sodium Chloride 0.9%) 1,000 mls @ 125 mls/hr IV .Q8H [facility] Last Admin: 06/20/16 08:27 Dose: 125 mls/hr Metronidazole (Flagyl) 250 mg PO QID [facility] PRN Reason: Protocol Last Admin: 06/19/16 21:56 Dose: 250 mg Mirtazapine (Remeron) 15 mg PO HS [facility] Last Admin: 06/19/16 21:56 Dose: 15 mg Ondansetron HCl (Zofran Inj) 4 mg IVP Q4H PRN PRN Reason: Nausea/Vomiting Last Admin: 06/19/16 22:01 Dose: 4 mg Pantoprazole Sodium (Protonix Inj) 40 mg IVP DAILY [facility] Last Admin: 04/14/17 09:20 Dose: 40 mg Tramadol HCl (Ultram) 50 mg PO Q6 PRN PRN Reason: Pain, moderate (4-7) Last Admin: 06/20/16 08:25 Dose: 50 mg - Labs Labs: 06/20/16 07:30 06/20/16 07:30 PT 10.5 Seconds (9.9-11.8) 06/18/16 00:25 INR 0.97 (0.93-1.08) 06/18/16 00:25 APTT 25.6 Seconds (23.7-30.8) 06/18/16 00:25 - Constitutional Appears: Well, Non-toxic, No Acute Distress - Head Exam Head Exam: ATRAUMATIC, NORMAL INSPECTION, NORMOCEPHALIC - Eye Exam Eye Exam: EOMI, PERRL - ENT Exam ENT Exam: Mucous Membranes Moist - Neck Exam Neck Exam: Normal Inspection - Respiratory Exam Respiratory Exam: Clear to Ausculation Bilateral. absent: Rales, Rhonchi, Wheezes - Cardiovascular Exam Cardiovascular Exam: REGULAR RHYTHM, +S1, +S2. absent: Murmur - GI/Abdominal Exam GI & Abdominal Exam: Soft, Tenderness (mild epigastric tenderness), Normal Bowel Sounds. absent: Distended, Firm, Guarding, Rigid - Back Exam Back Exam: NORMAL INSPECTION - Neurological Exam Neurological Exam: Alert, Awake, CN II-XII Intact, Normal Gait, Oriented x3 Assessment and Plan - Assessment and Plan (Free Text) Assessment: 26yo female with history of mild persistent asthma, depression and anxiety presenting c/o epigastric abdominal pain associated with nausea x6 days, loose stools x 4 months and 1 episode of nbnb emesis. Plan: 1. Abdominal pain associated with nausea/vomiting/diarrhea -CT Abd/pelvis reviewed; revealed GB wall thickening and proctosigmoiditis -afebrile, no leukocytosis -Abdominal US revealed GB wall thickening and trace pericholecystic fluid -HIDA scan negative for cholecystitis -Continue flagyl as per GI recommendations -Continue IVF hydration -Stool leukocytes negative; Amylase/lipase within normal limits -Cdiff toxin/antigen negative -Pending: stool culture; ova/parasites -Pending biopsy results of endoscopy/sigmoidoscopy -Given continued report of abdominal discomfort, we will advance the patient's diet slowly and observe if she can tolerate PO intake. If she is able to tolerate PO intake with minimal abdominal discomfort, she can be discharged home tomorrow with instructions to follow up with her primary doctor and gastroenterology within 1-2 weeks. If her symptoms worsen tomorrow, she will require repeat imaging for further evaluation. -GI consulted - Dr. Harkins -Surgery consulted; no surgical intervention recommended at this time - Dr. Vale 2. Hypokalemia, resolved -Will continue to monitor and replete electrolytes as needed 3. Anemia -Likely iron deficiency in etiology given low-normal ferritin and iron levels -Currently on menses -Will continue to monitor 4. Mild persistent asthma -Duoneb q2h PRN 5. Depression/ anxiety -continue home meds 6. GI/DVT prophylaxis -Protonix/heparin SC Patient seen and case discussed with attending, Dr. Fernandez
--- NOTE | 2016-06-20 12:40 | CP.PCM.DIS ---
<Jose Martin Johnson - Last Filed: 06/22/16 13:08> Provider - Provider Date of Admission: 06/20/16 12:12 Attending physician: Phillip Fernandez MD Consults: GI - Dr. Harkins Surgery - Dr. Vale Time Spent in preparation of Discharge (in minutes): 30 Hospital Course - Lab Results Lab Results: Most Recent Lab Values WBC 6.0 10^3/ul (4.5-11.0) D 06/20/16 07:30 RBC 3.52 10^6/uL (3.5-6.1) 06/20/16 07:30 Hgb 10.1 gm/dL (12.0-16.0) L 06/20/16 07:30 Hct 30.7 % (36.0-48.0) L 06/20/16 07:30 MCV 87.2 fL (80.0-105.0) 06/20/16 07:30 MCH 28.7 pg (25.0-35.0) 06/20/16 07:30 MCHC 32.9 g/dl (31.0-37.0) 06/20/16 07:30 RDW 13.5 % (11.5-14.5) 06/20/16 07:30 Plt Count 262 10^3/uL (120.0-450.0) 06/20/16 07:30 MPV 10.3 fl (7.0-11.0) 06/20/16 07:30 Gran % 63.6 % (50.0-68.0) 06/20/16 07:30 Lymph % (Auto) 25.4 % (22.0-35.0) 06/20/16 07:30 Arroyo % (Auto) 6.8 % (1.0-6.0) H 06/20/16 07:30 Eos % (Auto) 4.0 % (1.5-5.0) 06/20/16 07:30 Baso % (Auto) 0.2 % (0.0-3.0) 06/20/16 07:30 Gran # 3.83 (1.4-6.5) 06/20/16 07:30 Lymph # 1.5 (1.2-3.4) 06/20/16 07:30 Arroyo # 0.4 (0.1-0.6) 06/20/16 07:30 Eos # 0.2 (0.0-0.7) 06/20/16 07:30 Baso # 0.01 K/mm3 (0.0-2.0) 06/20/16 07:30 PT 10.5 Seconds (9.9-11.8) 06/18/16 00:25 INR 0.97 (0.93-1.08) 06/18/16 00:25 APTT 25.6 Seconds (23.7-30.8) 06/18/16 00:25 Sodium 137 mmol/L (132-148) 06/20/16 07:30 Potassium 3.9 mmol/L (3.6-5.0) 06/20/16 07:30 Chloride 104 mmol/L (95-110) 06/20/16 07:30 Carbon Dioxide 23 mmol/L (21-33) 06/20/16 07:30 Anion Gap 14 (10-20) 06/20/16 07:30 BUN 3 mg/dL (7-21) L 06/20/16 07:30 Creatinine 0.6 mg/dL (0.5-1.4) 06/20/16 07:30 Est GFR ( Amer) > 60 06/20/16 07:30 Est GFR (Non-Af Amer) > 60 06/20/16 07:30 Random Glucose 67 mg/dL (70-110) L 06/20/16 07:30 Calcium 8.5 mg/dL (8.4-10.5) 06/20/16 07:30 Phosphorus 2.9 mg/dL (2.5-4.5) 06/18/16 08:00 Magnesium 1.7 mg/dL (1.7-2.2) 06/18/16 08:00 Iron 86 ug/dL (45-180) 06/18/16 08:00 TIBC 376 ug/dL (265-497) 06/18/16 08:00 % Saturation 23 % (20-55) 06/18/16 08:00 Ferritin 7.9 ng/mL 06/18/16 08:00 Total Bilirubin 0.6 mg/dL (0.2-1.3) 06/20/16 07:30 AST 28 U/L (15-39) 06/20/16 07:30 ALT 40 U/L (7-56) 06/20/16 07:30 Alkaline Phosphatase 56 U/L (38-133) 06/20/16 07:30 Total Protein 6.6 g/dL (5.8-8.3) 06/20/16 07:30 Albumin 3.5 g/dL (3.0-4.8) 06/20/16 07:30 Globulin 3.0 gm/dL 06/20/16 07:30 Albumin/Globulin Ratio 1.2 (1.1-1.8) 06/20/16 07:30 Amylase 105 U/L (35-125) 06/18/16 00:25 Lipase 95 U/L (23-300) 06/18/16 00:25 TSH 3rd Generation 4.28 mIU/mL (0.46-4.68) 06/18/16 08:00 Urine Color Yellow (YELLOW) 06/18/16 00:25 Urine Appearance Slight-cloudy (CLEAR) 06/18/16 00:25 Urine pH 6.5 (4.7-8.0) 06/18/16 00:25 Ur Specific Emma 1.025 (1.005-1.035) 06/18/16 00:25 Urine Protein Trace mg/dL (<30 mg/dL) H 06/18/16 00:25 Urine Glucose (UA) Negative mg/dL (NEGATIVE) 06/18/16 00:25 Urine Ketones Negative mg/dL (NEGATIVE) 06/18/16 00:25 Urine Blood Moderate (NEGATIVE) H 06/18/16 00:25 Urine Nitrate Negative (NEGATIVE) 06/18/16 00:25 Urine Bilirubin Negative (NEGATIVE) 06/18/16 00:25 Urine Urobilinogen 0.2 E.U./dL (<1 E.U./dL) 06/18/16 00:25 Ur Leukocyte Esterase Negative Marcos/uL (NEGATIVE) 06/18/16 00:25 Urine RBC 1 - 3 /hpf (0-2) 06/18/16 00:25 Urine WBC 0 - 2 /hpf (0-6) 06/18/16 00:25 Ur Epithelial Cells 0 - 2 /hpf (0-5) 06/18/16 00:25 Urine Bacteria Rare (NEG) 06/18/16 00:25 Urine Other Mucus 06/18/16 00:25 Urine HCG, Qual Negative (NEGATIVE) 06/19/16 12:47 Stool Leukocytes, Qual Negative (NEGATIVE) 06/18/16 16:55 - Hospital Course Hospital Course: Patient is a 26yo female with past medical history of mild persistent asthma, depression and anxiety that presented c/o abdominal pain associated with nausea and 1 episode of nonbilious, nonbloody vomiting for 6 days prior to presentation. She also reported diarrhea for over 1 month. She stated that her abdominal pain localized to the epigastric region and was non-radiating. She reported the severity as an 8/10 with no apparent exacerbating or alleviating factors. She admitted to dizziness, headache and subjective chills. The following workup/results were obtained during the patient's hospital course: 1. Abdominal pain associated with nausea/vomiting/diarrhea -CT Abd/pelvis reviewed; revealed GB wall thickening and proctosigmoiditis -afebrile, no leukocytosis -Abdominal US revealed GB wall thickening and trace pericholecystic fluid -HIDA scan negative for cholecystitis -Continue flagyl as per GI recommendations -Continue IVF hydration -Stool leukocytes negative; Amylase/lipase within normal limits -Cdiff toxin/antigen negative -Patient underwent endoscopy/sigmoidoscopy and is pending biopsy results; no apparent acute findings -The patients diet was slowly advanced and she was able to tolerate a soft, low- fat diet. In light of the fact that she was able to tolerate PO without nausea/ vomiting and minimal abdominal discomfort, she was agreeable to plan of discharge to home with instructions to follow up with gastroenterology within 1- 2 weeks as well as her primary care doctor within 1-2 weeks. She communicated understanding and was agreeable to discharge. -GI consulted - Dr. Harkins -Surgery consulted; no surgical intervention recommended at this time - Dr. Vale 2. Hypokalemia, resolved -Will continue to monitor and replete electrolytes as needed 3. Anemia -Likely iron deficiency in etiology given low-normal ferritin and iron levels -Currently on menses -Will continue to monitor 4. Mild persistent asthma -Duoneb q2h PRN 5. Depression/ anxiety -continue home meds Disposition: Through the patient's hospital course, she reported improvement of her abdominal pain and stated that she remained to have mild abdominal discomfort towards the end. She was able to tolerate soft, low fat diet without nausea/vomiting and had good appetite. She was agreeable to discharge with instructions to follow up with her PMD and gastroenterology. Discharge Exam - Head Exam Head Exam: ATRAUMATIC, NORMAL INSPECTION, NORMOCEPHALIC - Eye Exam Eye Exam: EOMI, PERRL - ENT Exam ENT Exam: Mucous Membranes Moist, Normal Exam - Neck Exam Neck exam: Normal Inspection - Respiratory Exam Respiratory Exam: Clear to PA & Lateral, NORMAL BREATHING PATTERN, UNREMARKABLE. absent: Rales, Rhonchi, Wheezes - Cardiovascular Exam Cardiovascular Exam: RRR, +S1, +S2. absent: Bradycardia, Tachycardia, Clicks, Diastolic murmur, Gallop, JVD, Rubs, Systolic Murmur - GI/Abdominal Exam GI & Abdominal Exam: Normal Bowel Sounds, Soft. absent: Distended, Firm, Guarding, Rebound, Tenderness - Extremities Exam Extremities exam: normal inspection - Neurological Exam Neurological exam: Alert, CN II-XII Intact, Normal Gait, Oriented x3, Reflexes Normal - Psychiatric Exam Psychiatric exam: Normal Affect, Normal Mood - Skin Skin Exam: Dry, Intact, Normal Color, Warm Discharge Plan - Follow Up Plan Condition: FAIR Disposition: HOME/ ROUTINE Instructions: Low Fat Diet (DC), Acute Abdominal Pain (DC) Additional Instructions: 1. Follow up with your primary doctor, Dr. Fernandez within 1-2 weeks. 2. Follow up with your flour worker, Dr. Harkins within 1-2 weeks. 3. Return to the emergency room should your condition worsen or change in severity/quality. Referrals: Phillip Fernandez MD [Family Provider] - Meka Harkins MD [Medical Doctor] - <Phillip Fernandez - Last Filed: 07/10/16 09:17> Provider - Provider Date of Admission: 06/18/16 05:32 Attending physician: Phillip Fernandez MD Hospital Course - Lab Results Lab Results: Micro Results 06/19/16 14:35 Stool C. difficile Antigen & Toxin A,B (M - Final 06/18/16 16:45 Stool Ova and Parasite Concentrate Exam - Final 06/18/16 16:55 Stool C. difficile Antigen & Toxin A,B (M - Final Most Recent Lab Values WBC 6.0 10^3/ul (4.5-11.0) D 06/20/16 07:30 RBC 3.52 10^6/uL (3.5-6.1) 06/20/16 07:30 Hgb 10.1 gm/dL (12.0-16.0) L 06/20/16 07:30 Hct 30.7 % (36.0-48.0) L 06/20/16 07:30 MCV 87.2 fL (80.0-105.0) 06/20/16 07:30 MCH 28.7 pg (25.0-35.0) 06/20/16 07:30 MCHC 32.9 g/dl (31.0-37.0) 06/20/16 07:30 RDW 13.5 % (11.5-14.5) 06/20/16 07:30 Plt Count 262 10^3/uL (120.0-450.0) 06/20/16 07:30 MPV 10.3 fl (7.0-11.0) 06/20/16 07:30 Gran % 63.6 % (50.0-68.0) 06/20/16 07:30 Lymph % (Auto) 25.4 % (22.0-35.0) 06/20/16 07:30 Arroyo % (Auto) 6.8 % (1.0-6.0) H 06/20/16 07:30 Eos % (Auto) 4.0 % (1.5-5.0) 06/20/16 07:30 Baso % (Auto) 0.2 % (0.0-3.0) 06/20/16 07:30 Gran # 3.83 (1.4-6.5) 06/20/16 07:30 Lymph # 1.5 (1.2-3.4) 06/20/16 07:30 Arroyo # 0.4 (0.1-0.6) 06/20/16 07:30 Eos # 0.2 (0.0-0.7) 06/20/16 07:30 Baso # 0.01 K/mm3 (0.0-2.0) 06/20/16 07:30 PT 10.5 Seconds (9.9-11.8) 06/18/16 00:25 INR 0.97 (0.93-1.08) 06/18/16 00:25 APTT 25.6 Seconds (23.7-30.8) 06/18/16 00:25 Sodium 137 mmol/L (132-148) 06/20/16 07:30 Potassium 3.9 mmol/L (3.6-5.0) 06/20/16 07:30 Chloride 104 mmol/L (95-110) 06/20/16 07:30 Carbon Dioxide 23 mmol/L (21-33) 06/20/16 07:30 Anion Gap 14 (10-20) 06/20/16 07:30 BUN 3 mg/dL (7-21) L 06/20/16 07:30 Creatinine 0.6 mg/dL (0.5-1.4) 06/20/16 07:30 Est GFR ( Amer) > 60 06/20/16 07:30 Est GFR (Non-Af Amer) > 60 06/20/16 07:30 Random Glucose 67 mg/dL (70-110) L 06/20/16 07:30 Calcium 8.5 mg/dL (8.4-10.5) 06/20/16 07:30 Phosphorus 2.9 mg/dL (2.5-4.5) 06/18/16 08:00 Magnesium 1.7 mg/dL (1.7-2.2) 06/18/16 08:00 Iron 86 ug/dL (45-180) 06/18/16 08:00 TIBC 376 ug/dL (265-497) 06/18/16 08:00 % Saturation 23 % (20-55) 06/18/16 08:00 Ferritin 7.9 ng/mL 06/18/16 08:00 Total Bilirubin 0.6 mg/dL (0.2-1.3) 06/20/16 07:30 AST 28 U/L (15-39) 06/20/16 07:30 ALT 40 U/L (7-56) 06/20/16 07:30 Alkaline Phosphatase 56 U/L (38-133) 06/20/16 07:30 Total Protein 6.6 g/dL (5.8-8.3) 06/20/16 07:30 Albumin 3.5 g/dL (3.0-4.8) 06/20/16 07:30 Globulin 3.0 gm/dL 06/20/16 07:30 Albumin/Globulin Ratio 1.2 (1.1-1.8) 06/20/16 07:30 Amylase 105 U/L (35-125) 06/18/16 00:25 Lipase 95 U/L (23-300) 06/18/16 00:25 TSH 3rd Generation 4.28 mIU/mL (0.46-4.68) 06/18/16 08:00 Urine Color Yellow (YELLOW) 06/18/16 00:25 Urine Appearance Slight-cloudy (CLEAR) 06/18/16 00:25 Urine pH 6.5 (4.7-8.0) 06/18/16 00:25 Ur Specific Emma 1.025 (1.005-1.035) 06/18/16 00:25 Urine Protein Trace mg/dL (<30 mg/dL) H 06/18/16 00:25 Urine Glucose (UA) Negative mg/dL (NEGATIVE) 06/18/16 00:25 Urine Ketones Negative mg/dL (NEGATIVE) 06/18/16 00:25 Urine Blood Moderate (NEGATIVE) H 06/18/16 00:25 Urine Nitrate Negative (NEGATIVE) 06/18/16 00:25 Urine Bilirubin Negative (NEGATIVE) 06/18/16 00:25 Urine Urobilinogen 0.2 E.U./dL (<1 E.U./dL) 06/18/16 00:25 Ur Leukocyte Esterase Negative Marcos/uL (NEGATIVE) 06/18/16 00:25 Urine RBC 1 - 3 /hpf (0-2) 06/18/16 00:25 Urine WBC 0 - 2 /hpf (0-6) 06/18/16 00:25 Ur Epithelial Cells 0 - 2 /hpf (0-5) 06/18/16 00:25 Urine Bacteria Rare (NEG) 06/18/16 00:25 Urine Other Mucus 06/18/16 00:25 Urine HCG, Qual Negative (NEGATIVE) 06/19/16 12:47 Stool Sodium 25.50 mEq/L (()) 06/18/16 16:55 Stool Potassium 31 mEq/L (()) 06/18/16 16:55 Stool Chloride 5 mEq/L (()) 06/18/16 16:55 Stool Leukocytes, Qual Negative (NEGATIVE) 06/18/16 16:55 Attending/Attestation - Attestation I have personally seen and examined this patient.: Yes I have fully participated in the care of the patient.: Yes I have reviewed all pertinent clinical information, including history, physical exam and plan: Yes Notes (Text): 07/10/16 09:17 Medical record note made by the resident after discussion with my direction and input after the patient was personally seen and examined by me. I have reviewed the chart and agree that the record accurately reflects by personal performance of the history, physical exam, data review, and medical decision-making, in the course for the patient. I have also personally directed the plan of care.
--- NOTE | 2016-06-20 16:30 | PN ---
DATE: 06/20/2016 SUBJECTIVE: This patient was seen and evaluated earlier. The patient is tolerating the diet and has significant improvement of the symptoms. PHYSICAL EXAMINATION: VITAL SIGNS: Temperature is 98.5, blood pressure 136/86, pulse is 75, respirations 20, O2 sat is 98% . HEENT: Atraumatic, anicteric. NECK: Supple. HEART: S1, S2 heard. LUNGS: Bilateral normal vesicular breath sounds. ABDOMEN: Soft. There is no mass palpable. Mild tenderness on deep palpation in the left upper quad rant area. EXTREMITIES: No edema. LABORATORY DATA: Hemoglobin is 10.1, hematocrit 30.7, WBC 6.0, platelets 267. LFTs are essentially unremarkable. IMPRESSION AND PLAN: This 26-year-old patient was admitted with abdominal pain and also diarrhea, no w no more diarrhea. Now patient constipation. The flexible sigmoidoscopy revealed small hemor rhoids and also normal appearing colonic mucosa. Right upper quadrant, the gallbladder wall appeared to be thickened. No stones identified. I had a detailed discussion with the surgeon, Dr. Vale. The plan is to clinically follow the ann ent in view of the absence of the stone and no leukocytosis and clinically improving. It is a reason able approach to consider conservative management. The patient was advised to follow up in the offic e. The patient would clearly need to be followed up in outpatient for further GI evaluation and ann ent was advised to go to the ER if there is any further worsening of the symptoms. The patient is pl anned to be discharged today. This patient's mother was at bedside. This was explained to the james stanley who understands. Meka Harkins MD cc: [id number] TT: 06/20/2016 16:29:26 Confirmation # [id number] Dictation # [id number] ross
== END 2016-06-20 15:34 | disposition home or self-care (01) ==
LOC: ED 23:00 → ERH 06-18 05:32 → 5RSO 06-18 07:55 → INTOOBSV 06-20 12:12 → OBSVTOIN 06-20 12:12
PROVIDERS: ADMIT Internal Medicine; ATTEND Internal Medicine
DX: K29.50 Unspecified chronic gastritis without bleeding (principal); K63.89 Other specified diseases of intestine; K64.4 Residual hemorrhoidal skin tags; K64.8 Other hemorrhoids; J45.30 Mild persistent asthma, uncomplicated; F32.9 Major depressive disorder, single episode, unspecified; E87.6 Hypokalemia; D50.9 Iron deficiency anemia, unspecified; F41.9 Anxiety disorder, unspecified; F12.90 Cannabis use, unspecified, uncomplicated; R10.9 Unspecified abdominal pain
CPT/HCPCS: 36415; 43239; 45331; 74177; 76700; 78227; 80053; 81001; 82150; 82438; 82728; 83540; 83550; 83690; 83735; 84100; 84302; 84311; 84443; 84703; 85025; 85610; 85730; 87177; 87209; 87324; 88305; 88342; 89055; 94640; 96361; 96372; 96374; 96375; 96376; 99281; A9537; C9113; G0378; J1644; J2270; J2405; J2704; J3480; J7040; Q9966; Q9967